=== PATIENT | female | born 1960 ===

== ENCOUNTER → 2017-03-21 | Outpatient (CLI) | payer OTHER ==
--- NOTE | 2017-03-21 17:40 | REP ---
RIGHT SHOULDER, THREE VIEWS: HISTORY: Pain. There is no acute fracture or dislocation. There is narrowing of the acromioclavicular joint space with associated osteophyte formation. IMPRESSION: Degenerative change as described above. Signed by Angel Iniguez MD 03/22/2017 08:26 A
== END ==
LOC: M WUC 14:40
PROVIDERS: ATTEND Physician Assistant
DX: M25.519 Pain in unspecified shoulder (principal)

== ENCOUNTER → 2020-04-13 | Outpatient (CLI) | payer SELFPAY | LOC: M LABSMTC 12:52 | PROVIDERS: ATTEND Pediatrics | DX: Z20.828 Contact with and (suspected) exposure to other viral communicable diseases (principal) ==

== ENCOUNTER → 2022-01-06 | Outpatient (CLI) | payer SELFPAY | LOC: M WUC 11:01 | PROVIDERS: ATTEND Physician Assistant | DX: M79.642 Pain in left hand (principal); S63.8X2A Sprain of other part of left wrist and hand, initial encounter; M19.042 Primary osteoarthritis, left hand; X58.XXXA Exposure to other specified factors, initial encounter; Y92.9 Unspecified place or not applicable; Y93.9 Activity, unspecified; Y99.9 Unspecified external cause status ==